=== PATIENT | female | born 1985 | race Two or more races ===

== ENCOUNTER 2019-05-17 20:06 | Emergency (ER) | payer SELFPAY ==
[~2019-05-17] VITALS: Ht 147.3 cm; Wt 78.9 kg
[2019-05-17 20:58] VITALS: BP 140/81
--- NOTE | 2019-05-17 23:09 | NUR ---
CALLED PT TO [facility]. PER ADMITTING PT LEFT.
== END 2019-05-17 23:12 | disposition left against medical advice (07) ==
LOC: ER 20:11
DX: H57.11 Ocular pain, right eye (principal); Z53.21 Procedure and treatment not carried out due to patient leaving prior to being seen by health care provider